=== PATIENT | male | born 1945 | race Caucasian/White ===

== ENCOUNTER → 2016-10-07 | Outpatient (CLI) | payer OTHER ==
[~2016-10-07] VITALS: Ht 182.9 cm; Wt 85.3 kg
[~2016-10-07] MED LIST: CHOLESTYRAMINE378 GM PO; MOBIC15 MG PO; [UNRECOGNIZED DRUG - REMARK]
--- NOTE | ~2016-10-07 | HPC ---
[facility] [address] [place] [address] PAIN MANAGEMENT CONSULTATION Name: MURPHYJOHN ACUÑA [facility] [id number] Admission: 10/07/16 Attend Phys: Sharath Wells MD Discharge: Date of : 45 Report #: [id number] THIS REPORT FOR: //name// CC: John Wells DATE OF SERVICE: 10/07/2016 DATE OF REGISTRATION: 10/07/2016. Followup visit for cervicalgia with spondylosis. The patient returns to pain clinic today and reports that at his last visit in February, he received nearly 6 months of pain relief with facet injections. Pain relief was in the range of 95%. This is an excellent response that we are happy to achieve even with radiofrequency ablation. He is here today for repeat injections as the pain is now returning. Pain score today is 6/10 and it is worse with lying flat and is alleviated with repositioning, sitting and getting into his recliner. MEDICATIONS: ____ and Meloxicam. PHYSICAL EXAMINATION: A pleasant gentleman, 71 years of age, looks younger than his stated age. His blood pressure is 126/79, heart rate 64. BMI is 25. Cervical range of motion is limited in rotation, consistent with upper cervical facet pain. Lateral tilt and flexion, extension revealed mild crepitus. He has pain that radiates in the occiput. IMPRESSION: Cervicalgia with spondylosis of the cervical spine. PLAN: Repeat cervical facet injections bilaterally at C3-C4 and C4-C5. I have reviewed my radiographic images from previous injections which have provided a substantial benefit. PROCEDURE: Fluoroscopically guided bilateral C4-C5, C3-C4 facet injections. Skin was prepped ____ and we began on the left. He was placed prone. Skin was anesthetized overlying the C3-C4 facet joint. Using AP and lateral views, I gently advanced the needle into the lateral joint capsule. I injected 0.5 mL of Omnipaque and this demonstrated spread of dye along the joint capsule and extending medially. There was no intravascular uptake. I followed this with 1 mL of 0.5% bupivacaine and 20 mg of triamcinolone. Needle was removed. The skin was anesthetized below and reposition needle was advanced into the C4, C5 facet. Again, the joint capsule was identified with a small amount of Omnipaque and no vascular uptake was achieved. This was then followed with 1 mL of 0.5% bupivacaine in addition to 20 mg of triamcinolone. He tolerated this very well. [address] [address] PAIN MANAGEMENT CONSULTATION Name: JOHN MURPHY Room #: REG EVONBharat Cruz#: [id number] Admission: 10/07/16 Attend Phys: Sharath Wells MD Discharge: Date of : 45 Report #: [id number] The patient was allowed to slightly reposition, the C-arm was repositioned as well. We then performed the position exactly on the right as we had done on the left. AP and lateral for injections were obtained and again no vascular uptake was seen during the injections. He was observed in the recovery room for a short time before discharge, his pain score was 0 once again at discharge. Followup visit planned as needed. By: [id number] Sharath Wells MD /nt
[2016-10-07 12:43] VITALS: BP 126/79
== END | disposition home or self-care (01) ==
LOC: PAIN 07:20
DX: M47.812 Spondylosis without myelopathy or radiculopathy, cervical region (principal); M54.2 Cervicalgia; Z87.891 Personal history of nicotine dependence

== ENCOUNTER → 2017-03-28 | Outpatient (CLI) | payer OTHER ==
[~2017-03-28] VITALS: Ht 182.9 cm; Wt 87.5 kg
--- NOTE | ~2017-03-28 | HPC ---
[facility] [place] [address] PAIN MANAGEMENT CONSULTATION Name: JOHN MURPHY [id number] Admission: 03/28/17 Attend Phys: Sharath Wells MD Discharge: Date of : 45 Report #: [id number] THIS REPORT FOR: //name// CC: JOHN Whipple DATE OF SERVICE: 03/28/2017 Followup visit for cervical spondylosis. I last saw the patient on 10/07/2016. At that time, I provided C2-C3 bilateral facet injections with a small amount of Marcaine and steroid. He once again saw 4-6 months of excellent pain relief with this procedure. We have discussed radiofrequency ablation; however, his duration of response from the simple injections is so long that I think that we will continue to provide them for him intermittently. He has had no more than 2 injections in 1 year since 2014 when we began treatments. He has had no change in his health history since I last saw him. PQRS REVIEW: He does not have a history of osteoarthritis or rheumatoid arthritis. His BMI is 26.1 and is fit and looks young for age. His vital signs, are: Blood pressure 124/84, heart rate 63, respirations 16. His pain intensity today in the cervical spine is 8. His fall risk is negligible. He has not fallen in the last 3 months. He is on no blood thinners and has no hypertension. I do not provide opioid medications for him. He does not smoke nor does he drink. PHYSICAL EXAMINATION: GENERAL: He is a pleasant gentleman who appears younger than his stated age. MUSCULOSKELETAL: Cervical pain is noted with all movements, particularly with neck extension. Pain is high in the neck and has been consistent with x-ray evidence suggesting spondylosis in the cervical spine. IMPRESSION: Cervical spondylosis. PROCEDURE: Cervical facet injections, C2-C3, C3-C4 under fluoroscopic guidance. PROCEDURE IN DETAIL: The patient was placed prone, skin prepped first on the right. A 25-gauge needle was used to anesthetize the skin and then at each level, I advanced a 25-gauge needle to contact the lateral joint capsule at C2-C3 and C3-C4. After negative aspiration, I injected 0.25 mL of Omnipaque to demonstrate spread along the capsule and on the upper joint into the joint space extending towards the epidural space. I then followed each with a solution containing 2 mg of Decadron and 1 mL of 0.5% bupivacaine. He tolerated the [facility] [address] [place] [address] PAIN MANAGEMENT CONSULTATION Name: JOHN MURPHY Room #: [facility] [id number] Admission: 03/28/17 Attend Phys: Sharath Wells MD Discharge: Date of : 45 Report #: [id number] procedure well. He was lead repositioned and the procedure was repeated on the left using the exact same technique. There were no complications. He tolerated the procedure well and was taken to recovery room for observation. No medications were ordered. PLAN: For him to follow up as needed for repeat injections. <ELECTRONICALLY SIGNED> By: Sharath Wells MD 05/04/17 1640 [id number] Sharath Wells MD /nt
[2017-03-28 10:31] VITALS: BP 124/84
== END | disposition home or self-care (01) ==
LOC: PAIN 07:06
DX: M47.812 Spondylosis without myelopathy or radiculopathy, cervical region (principal); G89.29 Other chronic pain; Z98.890 Other specified postprocedural states; Z87.891 Personal history of nicotine dependence; Z88.5 Allergy status to narcotic agent

== ENCOUNTER → 2018-03-13 | Outpatient (CLI) | payer OTHER ==
[~2018-03-13] VITALS: Ht 182.9 cm; Wt 87.1 kg
--- NOTE | ~2018-03-13 | HPC ---
[facility] [place] [address] [place] [address] PAIN MANAGEMENT CONSULTATION Name: JOHN MURPHY Room #: REG [facility].#: [id number] Admission: 03/13/18 Attend Phys: Sharath Wells MD Discharge: Date of : 45 Report #: [id number] THIS REPORT FOR: //name// CC: John eWlls DATE OF SERVICE: 03/13/2018 CHIEF COMPLAINT: Low back pain with radiation into the left leg and cervical pain with radiation into the left arm. The patient is here today for lumbar radiculopathy. He complains of pain in his low back radiating down the L4-L5 lateral left leg. It is worsened by prolonged standing or lying flat. His best position is sitting in the recliner. He scores it as a 5/10 at its worst with a pinching like quality. He had an MRI scan, which I have reviewed. It shows findings of spondylosis most severe at L3-L4 where there is a shallow left paracentric left foraminal disk protrusion causing lateral recess narrowing and the posterior displacement of the L4 nerve root. There is also left lateral recess effacement in the undersurface of the left L3 nerve root in the neural foramen. This is consistent with his complaints of left-sided leg pain. MEDICATIONS: Reviewed and reconciled. PHYSICAL EXAMINATION: Blood pressure 107/75, heart rate 63 and respirations 14. Moves from sitting to standing position, gait is antalgic. He has limited range of motion in flexion and extension, which reproduces pain in the low back. Straight leg raising on the left reproduces pain as far as distal in the L4-L5 distribution. Sensation is diminished slightly in the anterior thigh. No loss of strength is noted. IMPRESSION: L4-L5 lumbar radiculopathy. I believe this may be mediated by the findings at L3-L4 or L4-L5. I think it is best to inject him at the L3-L4 level using the left paramedian translaminar approach. PROCEDURE: After informed consent, he was taken to the fluoroscopic suite and placed prone, skin prepped with ChloraPrep. Skin anesthetized over the L3-L4 interspace to the left of midline. A 20-gauge Tuohy epidural needle advanced first attempt into the epidural space using loss of resistance technique. There was no blood or CSF aspirated. 1 mL of Omnipaque was injected. Good spread of dye observed into the epidural space, was followed by 3 mL of 0.5% lidocaine mixed with 80 mg of triamcinolone. He tolerated the procedure well. Pain was [address] [address] PAIN MANAGEMENT CONSULTATION Name: JOHN MURPHY Room #: REG [facility].#: [id number] Admission: 03/13/18 Attend Phys: Sharath Wells MD Discharge: Date of : 45 Report #: [id number] reduced markedly in recovery room and was discharged with a followup visit on an as needed basis. By: [id number] MD yancy Zhu
[2018-03-13 15:20] VITALS: BP 107/75
--- NOTE | 2018-03-13 15:40 | NUR ---
Pain Clinic Assessment: 1. History of Osteoarthritis: Not Applicable History of Rheumatoid Arthritis: Not Applicable 2. Height: 6 ft. 0 in. 182.9 cm. Weight: 192.0 lb. oz. 87.091 kg. Patient's BMI: 26.0 3. Vital Signs: BP: 107/75 Pulse: 63 Resp: 14 Temp: 02 Sat: 98 ECG Mon: 4. Pain Intensity: 5 5. Fall Risk: Dizziness: N Needs help standing or walking: N Fallen in the last 3 months: N Fall risk comments: 6. Patient on Blood Thinner: None 7. History of Hypertension: N 8. Opioid Therapy greater than 6 weeks: N Opiate Contract Signed: 9. Risk Assessment Tool Provided: 10. Functional Assessment Tool: 11. Recreational Drug Use: Never Drug Type: Tobacco Use: Former Smoker Tobacco Type: Amount or Packs/day: How Many Years: Alcohol Use: No Frequency: Quant:
== END | disposition home or self-care (01) ==
LOC: PAIN 07:44
DX: M54.16 Radiculopathy, lumbar region (principal)

== ENCOUNTER → 2018-11-13 | Outpatient (CLI) | payer OTHER ==
[~2018-11-13] VITALS: Ht 182.9 cm; Wt 85.3 kg
[~2018-11-13] MED LIST changes: +FLOMAX0.4 MG PO; +OMEPRAZOLE40 MG PO
--- NOTE | ~2018-11-13 | HPC ---
[facility] [place] [address] PAIN MANAGEMENT CONSULTATION Name: JOHN MURPHY Room #: REG [facility]#: [id number] Admission: 11/13/18 ������������������ Attend Phys: Sharath Wells MD Discharge: ������������������ Date of : 45 Report #: [id number] THIS REPORT FOR: //name// CC: John Wells DATE OF SERVICE: 11/13/2018 Followup visit for chronic low back pain with recurring lumbar radiculopathy in the left leg. Last time I saw the patient, it was March. At that time, received an excellent response to an epidural injection performed at L3-L4 to the left of midline. Pain is now returning. 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 He can sit attributes that to the exacerbation of his chronic back pain and radiculopathy. He has findings at both L3-L4 and L4-L5 on his MRI. There is spondylosis fairly significant at that level and there is a left paracentral foraminal disk protrusion causing lateral recess narrowing and posterior displacement of the L4 nerve root. PQRS: 1. No history of osteoarthritis. 2. BMI is 25.5. He remains fit. 3. Blood pressure 122/73, heart rate 57, respirations 16. 4. Pain intensity 7/10 with walking 0 with sitting. 5. He has not fallen, nor is he a fall risk. 6. No blood thinning medications. 7. No hypertension. 8. No opioids. 9. He denies use of tobacco and alcohol. PHYSICAL EXAMINATION: VITAL SIGNS: As noted above. GENERAL: He moves independently from sitting to standing position, ambulates without antalgic features. He has pain across his low back with back extension, which reproduces pain into the leg. Straight leg raising is positive on the left following L4 distribution. Sensation is intact. There is no numbness or weakness. IMPRESSION: Left L4 radiculopathy. PROCEDURE: Repeat L3-L4 epidural injection under fluoroscopic guidance. After informed consent, he was taken to the fluoroscopic suite, placed prone, skin prepped with ChloraPrep. Skin anesthetized over the L3-L4 interspace, left of [address] [address] PAIN MANAGEMENT CONSULTATION Name: JOHN MURPHY Room #: [facility] [id number] Admission: 11/13/18 ������������������ Attend Phys: Sharath Wells MD Discharge: ������������������ Date of : 45 Report #: [id number] midline. A 20-gauge Tuohy epidural needle advanced in the epidural space with loss of resistance. There was no blood or CSF aspirated. After injecting a mL of Omnipaque demonstrating a good epidurogram was followed by 3 mL of 0.5% lidocaine mixed with 10 mg of dexamethasone. He tolerated the procedure well. There were no complications. Pain score was 0 at discharge and a followup as needed. No medications were ordered. ��������������������������������������������� ���������������������������������������� By: ��������������������������������������������� [id number] Sharath Wells MD /salvatore
[2018-11-13 09:23] VITALS: BP 122/73
--- NOTE | 2018-11-13 09:27 | NUR ---
Pain Clinic Assessment: 1. History of Osteoarthritis: Not Applicable History of Rheumatoid Arthritis: Not Applicable 2. Height: 6 ft. 0 in. 182.9 cm. Weight: 188.0 lb. oz. 85.276 kg. Patient's BMI: 25.5 3. Vital Signs: BP: 122/73 Pulse: 57 Resp: 16 Temp: 02 Sat: 95 ECG Mon: 4. Pain Intensity: 7-WALKING,0-SITTING 5. Fall Risk: Dizziness: N Needs help standing or walking: N Fallen in the last 3 months: N Fall risk comments: 6. Patient on Blood Thinner: None 7. History of Hypertension: N 8. Opioid Therapy greater than 6 weeks: N Opiate Contract Signed: 9. Risk Assessment Tool Provided: 10. Functional Assessment Tool: 11. Recreational Drug Use: Never Drug Type: Tobacco Use: Former Smoker Tobacco Type: Amount or Packs/day: How Many Years: Alcohol Use: No Frequency: Quant:
--- NOTE | 2018-11-13 09:31 | NUR ---
Pain Clinic Assessment: 1. History of Osteoarthritis: Not Applicable History of Rheumatoid Arthritis: Not Applicable 2. Height: 6 ft. 0 in. 182.9 cm. Weight: 188.0 lb. oz. 85.276 kg. Patient's BMI: 25.5 3. Vital Signs: BP: 122/73 Pulse: 57 Resp: 16 Temp: 02 Sat: 95 ECG Mon: 4. Pain Intensity: 7-WALKING,0-SITTING 5. Fall Risk: Dizziness: N Needs help standing or walking: N Fallen in the last 3 months: N Fall risk comments: 6. Patient on Blood Thinner: None 7. History of Hypertension: N 8. Opioid Therapy greater than 6 weeks: N Opiate Contract Signed: 9. Risk Assessment Tool Provided: LOW 10. Functional Assessment Tool: 34/ 11. Recreational Drug Use: Never Drug Type: Tobacco Use: Former Smoker Tobacco Type: Amount or Packs/day: How Many Years: Alcohol Use: No Frequency: Quant:
== END | disposition home or self-care (01) ==
LOC: PAIN 06:43
DX: M51.16 Intervertebral disc disorders with radiculopathy, lumbar region (principal); G89.29 Other chronic pain; M47.26 Other spondylosis with radiculopathy, lumbar region; Z87.891 Personal history of nicotine dependence; Z88.8 Allergy status to other drugs, medicaments and biological substances; Z79.899 Other long term (current) drug therapy

== ENCOUNTER → 2021-03-17 | Outpatient (CLI) | payer OTHER | LOC: SJCVC 09:28 → SJCVCIMAG 09:28 | PROVIDERS: ATTEND Internal Medicine Cardiovascular Disease | DX: R94.31 Abnormal electrocardiogram [ECG] [EKG] (principal); Z13.6 Encounter for screening for cardiovascular disorders; I49.3 Ventricular premature depolarization; R07.9 Chest pain, unspecified; R00.8 Other abnormalities of heart beat; K21.9 Gastro-esophageal reflux disease without esophagitis; Z87.891 Personal history of nicotine dependence; Z79.899 Other long term (current) drug therapy ==